=== PATIENT | female | born 1940 | race Caucasian/White ===

== ENCOUNTER 2018-02-21 10:49 | Inpatient (IN) | payer MEDICARE, BC ==
[2018-02-21] MEDS ORDERED: cefTRIAXone 1 GM in Sodium Chloride 0.9% 50 ML IV ONE (12:18)
--- NOTE | 2018-02-21 12:28 | EDM.PDOC ---
ED HPI GENERAL MEDICAL PROBLEM - General Chief Complaint: General Stated Complaint: MEDICAL [facility]IA [facility] Time Seen by Provider: 02/21/18 10:55 Source of Information: Reports: Patient, Family, Other (pt is very weak and is mildly confused. ) History Limitations: Reports: No Limitations - History of Present Illness INITIAL COMMENTS - FREE TEXT/NARRATIVE: pt was discharged from the custodial at [facility], She has been very weak and recently weaker. She fell this AM trying to get to a chair. She landed over the table. She is cared for by her and he is definitely overwhelmed. He feels he needs help or she needs to be in a custodial. Her weakness has been progressive. She fell today and can not identify any definite area of pain except she has chronic back pain. Onset: Today, Other (pt fell this am. ) Duration: Hour(s): Location: Reports: Back, Other (pt is pale and is very weak, ) Associated Symptoms: Reports: Weakness generalized Pain Score (Numeric/FACES): 2 - Related Data Allergies Allergy/AdvReac Type Severity Reaction Status Date / Time Penicillins Allergy Hives Verified 02/15/16 03:53 statins Allergy Cannot Uncoded 02/21/18 11:08 Remember Home Meds: Home Meds Acetaminophen 500 mg PO Q6H PRN 11/26/17 [History] Albuterol [Proventil HFA] 1 - 2 puff INH Q4H PRN 11/26/17 [History] Aspirin [Adult Low Dose Aspirin EC] 81 mg PO DAILY 11/26/17 [History] Ca Carbonate/Vitamin D3/Vit K [Calcium + D Soft Chewable Tab] 1 tab PO BID 11/26 [History] Cyclobenzaprine [Flexeril] 5 mg PO BEDTIME PRN 11/26/17 [History] Meclizine [Antivert] 1 tab PO TID PRN 11/26/17 [History] Melatonin 3 mg PO BEDTIME 11/26/17 [History] Polyethylene Glycol 3350 [MiraLAX] 17 gm PO DAILY 11/26/17 [History] Sertraline [Zoloft] 75 mg PO ASDIRECTED 11/26/17 [History] amLODIPine [Norvasc] 2.5 mg PO DAILY 11/26/17 [History] Albuterol/Ipratropium [DuoNeb 3.0-0.5 MG/3 ML] 3 ml INH Q4H PRN 02/21/18 [ History] Betamethasone Valerate [Valisone 0.1% Lotion] 1 dose TOP BID 02/21/18 [History] Estrogens, Conjugated [Premarin Vaginal Crm] 1 applic VAG ASDIRECTED 02/21/18 [ History] Ferrous Sulfate 325 mg PO DAILY 02/21/18 [History] Furosemide [Lasix] 20 mg PO DAILY 02/21/18 [History] L.acidoph,Paracasei, B.lactis [Probiotic] 1 each PO DAILY 02/21/18 [History] oxyCODONE 2.5 mg PO BID 02/21/18 [History] Past Medical History HEENT History: Reports: Impaired Vision Cardiovascular History: Reports: Aneurysm, CAD, Heart Murmur, High Cholesterol, Hypertension, NE, PVD, Stents Respiratory History: Reports: COPD, Other (See Below) Other Respiratory History: pneumonia aprox 3 months ago Gastrointestinal History: Reports: Chronic Constipation, Pancreatitis Genitourinary History: Reports: Chronic Renal Insuffiency, Urinary Incontinence , Other (See Below) Other Genitourinary History: Stage 3 [employer] History: Reports: Musculoskeletal History: Reports: Back Pain, Chronic Other Musculoskeletal History: recent lumbar injectons Neurological History: Reports: CVA Psychiatric History: Reports: Anxiety Dermatologic History: Reports: Eczema - Infectious Disease History Infectious Disease History: Reports: Chicken Pox, Measles, Mumps - Past Surgical History HEENT Surgical History: Reports: Oral Surgery, Tonsillectomy Cardiovascular Surgical History: Reports: AAA Repair, Coronary Artery Stent Female Surgical History: Reports: None Neurological Surgical History: Reports: None Social & Family History - Family History Family Medical History: Noncontributory Oncologic: Reports: Breast - Tobacco Use Smoking Status *Q: Former Smoker Years of Tobacco use: 55 Packs/Tins Daily: 1 Used Tobacco, but Quit: Yes Month/Year Tobacco Last Used: 07/19/2015 Second Hand Smoke Exposure: No - Caffeine Use Caffeine Use: Reports: Coffee, Soda - Recreational Drug Use Recreational Drug Use: No ED ROS GENERAL - Review of Systems Review Of Systems: See Below Constitutional: Reports: Weakness, Fatigue, Other (pt is not strong enough to ambulate. ) HEENT: Reports: No Symptoms Respiratory: Reports: No Symptoms Cardiovascular: Reports: No Symptoms Endocrine: Reports: No Symptoms GI/Abdominal: Reports: Other (pt is dealing with some copnstipation issues. ) : Reports: Incontinence, Other (pt has not been using depends so there has been alot of bed changing. ) Musculoskeletal: Reports: No Symptoms Skin: Reports: No Symptoms ED EXAM, GENERAL - Physical Exam Exam: See Below Free Text/Narrative:: Pt arrived with low back pain. This does not appear to be severe. She has had progressive weakness. Her appetite has been very poor. She has been drinking Ensure. Exam Limited By: No Limitations General Appearance: Alert, Mild Distress, Other (pupils equal and reactive. ) Ears: Normal TMs Nose: Normal Inspection Throat/Mouth: Normal Inspection Head: Atraumatic Neck: Normal Inspection Respiratory/Chest: No Respiratory Distress Cardiovascular: Regular Rate, Rhythm GI/Abdominal: Soft, Non-Tender (Female) Exam: Other (Pt smells of urine and she is incontinent. ) Rectal (Female) Exam: Other (Pt has no masses but there is alot of hard stool in the rectum. ) Back Exam: Other (pt has chronic low back pain. ) Extremities: Normal Inspection Neurological: Alert, Oriented, Other (pt is having some memory problems. ) Psychiatric: Flat Affect Course - Vital Signs Last Recorded V/S: Last Vital Signs Temp 36.7 C 02/21/18 10:53 Pulse 83 02/21/18 10:53 Resp 16 02/21/18 10:53 BP 132/78 02/21/18 10:53 Pulse Ox 95 02/21/18 10:53 - Orders/Labs/Meds Orders: Active Orders 24 hr Category Date Time Status Chest 1V Frontal [CR] Stat Exams 02/21/18 11:24 Taken Lumbar Spine Min 4V [CR] Stat Exams 02/21/18 11:25 Ordered Thoracic Spine Min 4V [CR] Stat Exams 02/21/18 11:25 Ordered CULTURE URINE [RM] Stat Lab 02/21/18 12:20 Received RED BLOOD CELLS LP [BBK] Stat Lab 02/21/18 11:58 Ordered TSH ULTRASENSITIVE [CHEM] Stat Lab 02/21/18 12:51 Ordered TYPE AND SCREEN [BBK] Stat Lab 02/21/18 11:58 Ordered Sodium Chloride 0.9% [Normal Saline] 1,000 ml Med 02/21/18 12:30 Active IV ASDIRECTED Medication Orders Sodium Chloride (Normal Saline) 1,000 mls @ 400 mls/hr IV ASDIRECTED GLORY Last Admin: 02/21/18 12:53 Dose: 400 mls/hr Labs: Laboratory Tests 02/21/18 02/21/18 02/21/18 Range/Units 11:29 11:29 11:39 WBC 11.9 H (4.5-11.0) K/uL RBC 3.20 L (3.30-5.50) M/uL Hgb 7.9 L (12.0-15.0) g/dL Hct 27.8 L (36.0-48.0) % MCV 87 (80-98) fL MCH 25 L (27-31) pg MCHC 28 L (32-36) % Plt Count 348 (150-400) K/uL Neut % (Auto) 80 H (36-66) % Lymph % (Auto) 12 L (24-44) % Long % (Auto) 7 H (2-6) % Eos % (Auto) 0 L (2-4) % Baso % (Auto) 0 (0-1) % Sodium 142 (140-148) mmol/L Potassium 3.4 L (3.6-5.2) mmol/L Chloride 104 (100-108) mmol/L Carbon Dioxide 29 (21-32) mmol/L Anion Gap 12.4 (5.0-14.0) mmol/L BUN 38 H (7-18) mg/dL Creatinine 0.9 (0.6-1.0) mg/dL Est Cr Clr Drug Dosing 41.32 mL/min Estimated GFR (MDRD) > 60 (>60) Glucose 124 H (74-106) mg/dL Calcium 9.1 (8.5-10.1) mg/dL Iron 12 L (50-170) ug/dL TIBC 229 L (250-450) ug/dl % Saturation 5 L (20-55) % Total Bilirubin 0.3 D (0.2-1.0) mg/dL AST 16 (15-37) U/L ALT 21 (12-78) U/L Alkaline Phosphatase 77 (46-116) U/L Total Protein 6.1 L (6.4-8.2) g/dL Albumin 2.6 L (3.4-5.0) g/dL Globulin 3.5 (2.3-3.5) g/dL Albumin/Globulin Ratio 0.7 L (1.2-2.2) Urine Color Urine Appearance Urine pH (4.5-8.0) Ur Specific [place] (1.008-1.030) Urine Protein (NEGATIVE) mg/dL Urine Glucose (UA) (NEGATIVE) mg/dL Urine Ketones (NEGATIVE) mg/dL Urine Occult Blood (NEGATIVE) Urine Nitrite (NEGATIVE) Urine Bilirubin (NEGATIVE) Urine Urobilinogen (NORMAL) mg/dL Ur Leukocyte Esterase (NEGATIVE) Urine RBC (0-5) Urine WBC (0-5) Ur Epithelial Cells Amorphous Sediment Urine Bacteria Urine Mucus 02/21/18 Range/Units 11:46 WBC (4.5-11.0) K/uL RBC (3.30-5.50) M/uL Hgb (12.0-15.0) g/dL Hct (36.0-48.0) % MCV (80-98) fL MCH (27-31) pg MCHC (32-36) % Plt Count (150-400) K/uL Neut % (Auto) (36-66) % Lymph % (Auto) (24-44) % Long % (Auto) (2-6) % Eos % (Auto) (2-4) % Baso % (Auto) (0-1) % Sodium (140-148) mmol/L Potassium (3.6-5.2) mmol/L Chloride (100-108) mmol/L Carbon Dioxide (21-32) mmol/L Anion Gap (5.0-14.0) mmol/L BUN (7-18) mg/dL Creatinine (0.6-1.0) mg/dL Est Cr Clr Drug Dosing mL/min Estimated GFR (MDRD) (>60) Glucose (74-106) mg/dL Calcium (8.5-10.1) mg/dL Iron (50-170) ug/dL TIBC (250-450) ug/dl % Saturation (20-55) % Total Bilirubin (0.2-1.0) mg/dL AST (15-37) U/L ALT (12-78) U/L Alkaline Phosphatase (46-116) U/L Total Protein (6.4-8.2) g/dL Albumin (3.4-5.0) g/dL Globulin (2.3-3.5) g/dL Albumin/Globulin Ratio (1.2-2.2) Urine Color Yellow Urine Appearance Slightly cloudy Urine pH 5.0 (4.5-8.0) Ur Specific [place] 1.015 (1.008-1.030) Urine Protein Trace (NEGATIVE) mg/dL Urine Glucose (UA) Normal (NEGATIVE) mg/dL Urine Ketones Negative (NEGATIVE) mg/dL Urine Occult Blood Small (NEGATIVE) Urine Nitrite Negative (NEGATIVE) Urine Bilirubin Negative (NEGATIVE) Urine Urobilinogen Normal (NORMAL) mg/dL Ur Leukocyte Esterase Small (NEGATIVE) Urine RBC 5-10 H (0-5) Urine WBC 10-20 H (0-5) Ur Epithelial Cells Moderate Amorphous Sediment Not seen Urine Bacteria Many Urine Mucus Not seen Meds: Medications Generic Name Dose Route Start Last Admin Trade Name Freq PRN Reason Stop Dose Admin Sodium Chloride 1,000 mls @ 400 mls/hr 02/21/18 12:30 02/21/18 12:53 Normal Saline IV 400 mls/hr ASDIRECTED GLORY Administration Discontinued Medications Generic Name Dose Route Start Last Admin Trade Name Freq PRN Reason Stop Dose Admin Ceftriaxone Sodium 1 gm/ 50 mls @ 100 mls/hr 02/21/18 12:18 02/21/18 12:55 Sodium Chloride IV 02/21/18 12:47 100 mls/hr ONETIME ONE Administration - Re-Assessments/Exams Free Text/Narrative Re-Assessment/Exam: 02/21/18 12:34 pt has a normal creatnine. Her hg is 7.9 and was 13 in Nov. She has a UTI and she will be given rocephen. --1 GM. She does not have a fever. 02/21/18 12:41 pt has a low fe and low fe binding cap. 02/21/18 13:05 pt had xrays of her t and L spine. Her chest xray has alot of chronic changes. Departure - Departure Time of Disposition: 12:43 Disposition: Admitted As Inpatient 65 Condition: Fair Clinical Impression: Anemia, Iron deficiency, Dehydration UTI (urinary tract infection) Qualifiers: Urinary tract infection type: acute cystitis Hematuria presence: without hematuria Qualified Code(s): N30.00 - Acute cystitis without hematuria - Discharge Information Referrals: PCP,None [Primary Care Provider] - Forms: ED Department Discharge Care Plan Goals: admit to Dr lunsford. - My Orders Last 24 Hours: My Active Orders 02/21/18 11:24 Chest 1V Frontal [CR] Stat 02/21/18 11:25 Lumbar Spine Min 4V [CR] Stat Thoracic Spine Min 4V [CR] Stat 02/21/18 11:58 RED BLOOD CELLS LP [BBK] Stat TYPE AND SCREEN [BBK] Stat 02/21/18 12:20 CULTURE URINE [RM] Stat 02/21/18 12:30 Sodium Chloride 0.9% [Normal Saline] 1,000 ml IV ASDIRECTED 02/21/18 12:51 TSH ULTRASENSITIVE [CHEM] Stat - Assessment/Plan Last 24 Hours: My Active Orders 02/21/18 11:24 Chest 1V Frontal [CR] Stat 02/21/18 11:25 Lumbar Spine Min 4V [CR] Stat Thoracic Spine Min 4V [CR] Stat 02/21/18 11:58 RED BLOOD CELLS LP [BBK] Stat TYPE AND SCREEN [BBK] Stat 02/21/18 12:20 CULTURE URINE [RM] Stat 02/21/18 12:30 Sodium Chloride 0.9% [Normal Saline] 1,000 ml IV ASDIRECTED 02/21/18 12:51 TSH ULTRASENSITIVE [CHEM] Stat
[2018-02-21] MEDS ORDERED: Sodium Chloride 0.9% 1,000 ML IV SCH ×2 (12:30→14:35)
[2018-02-21] MEDS ORDERED: Acetaminophen 325 MG Tab PO PRN (14:35)
[2018-02-21] MEDS ORDERED: Ondansetron 4 MG/2 ML SDV IV PRN (14:35)
[2018-02-21] MEDS ORDERED: Albuterol 0.083% 2.5 MG/3 ML Neb Soln NEB PRN (14:35)
[2018-02-21] MEDS ORDERED: Magnesium Hydroxide 400 MG/5 ML Susp 30 ML Cup PO PRN (14:35)
[2018-02-21] MEDS ORDERED: Ondansetron 4 MG Tab.DIS PO PRN (14:35)
--- NOTE | 2018-02-21 14:40 | PCM.HP ---
H&P History of Present Illness - General Date of Service: 02/21/18 Admit Problem/Dx: Admission Diagnosis/Problem Admission Diagnosis/Problem Acute cystitis Source of Information: Patient, Family, Provider History Limitations: Reports: No Limitations - History of Present Illness Initial Comments - Free Text/Narative: Gi presents to the emergency room with her with a chief complaint of weakness and had a fall this morning. The patient has mild cognitive deficits so much of the history is gathered from her Norm. She had been in the senior living for about a month and has been home for just over a month. She has had a slow decline in her strength since that time. Even walking about 20 feet from the bed to the recliner is increasingly difficult. This morning her found her laying on the floor between the bed and the recliner after she had apparently got up at some point to go to the chair. She is not currently complaining of any aches or pains. No complaints of shoulder, elbow or chest pain. No complaints of abdominal pain. Her reports that she has not had much of an appetite and has lost more than 50 pounds in the past 6- 12 months. Patient reports odynophagia when trying to eat food. Liquids typically go down okay. No sensation of the food getting stuck. She has mild intermittent nausea. She reports difficulty with hard bowel movements but has not been using her stool softeners or miralax. She has not had any blood in her stool and has not had black tarry stools. She does not have any change in urinary symptoms but has chronic dysuria, frequency and incontinence. She is not sure if she's had any fevers recently but does occasionally feel warm. She does not feel any more short of breath than baseline. She uses oxygen 24 hours a day. Her is feeling overwhelmed with her current level of weakness and does not think he can safely care for her at home any longer. Workup in the emergency room revealed evidence for anemia with a hemoglobin of 7.9 and a very low iron level. She has a mild leukocytosis and evidence for urinary tract infection. She is extremely weak and not safe for outpatient management. She will be admitted for further workup of the anemia as well as strengthening, urinary tract infection treatment and possibly senior living placement. generalized Pain Score (Numeric/FACES): 2 - Related Data Allergies/Adverse Reactions: Allergies Allergy/AdvReac Type Severity Reaction Status Date / Time Penicillins Allergy Hives Verified 02/15/16 03:53 statins Allergy Cannot Uncoded 02/21/18 11:08 Remember Home Medications: Home Meds Acetaminophen 500 mg PO Q6H PRN 11/26/17 [History] Albuterol [Proventil HFA] 1 - 2 puff INH Q4H PRN 11/26/17 [History] Aspirin [Adult Low Dose Aspirin EC] 81 mg PO DAILY 11/26/17 [History] Ca Carbonate/Vitamin D3/Vit K [Calcium + D Soft Chewable Tab] 1 tab PO BID 11/26 [History] Cyclobenzaprine [Flexeril] 5 mg PO BEDTIME PRN 11/26/17 [History] Meclizine [Antivert] 1 tab PO TID PRN 11/26/17 [History] Melatonin 3 mg PO BEDTIME 11/26/17 [History] Polyethylene Glycol 3350 [MiraLAX] 17 gm PO DAILY 11/26/17 [History] Sertraline [Zoloft] 75 mg PO ASDIRECTED 11/26/17 [History] amLODIPine [Norvasc] 2.5 mg PO DAILY 11/26/17 [History] Albuterol/Ipratropium [DuoNeb 3.0-0.5 MG/3 ML] 3 ml INH Q4H PRN 02/21/18 [ History] Betamethasone Valerate [Valisone 0.1% Lotion] 1 dose TOP BID 02/21/18 [History] Estrogens, Conjugated [Premarin Vaginal Crm] 1 applic VAG ASDIRECTED 02/21/18 [ History] Ferrous Sulfate 325 mg PO DAILY 02/21/18 [History] Furosemide [Lasix] 20 mg PO DAILY 02/21/18 [History] L.acidoph,Paracasei, B.lactis [Probiotic] 1 each PO DAILY 02/21/18 [History] oxyCODONE 2.5 mg PO BID 02/21/18 [History] Past Medical History HEENT History: Reports: Impaired Vision Cardiovascular History: Reports: Aneurysm, CAD, Heart Murmur, High Cholesterol, Hypertension, [place], PVD, Stents Respiratory History: Reports: COPD, Other (See Below) Other Respiratory History: pneumonia aprox 3 months ago Gastrointestinal History: Reports: Chronic Constipation, Pancreatitis Genitourinary History: Reports: Chronic Renal Insuffiency, Urinary Incontinence , Other (See Below) Other Genitourinary History: Stage 3 CRI [employer] History: Reports: Musculoskeletal History: Reports: Back Pain, Chronic Other Musculoskeletal History: recent lumbar injectons Neurological History: Reports: CVA Psychiatric History: Reports: Anxiety Dermatologic History: Reports: Eczema - Infectious Disease History Infectious Disease History: Reports: Chicken Pox, Measles, Mumps - Past Surgical History HEENT Surgical History: Reports: Oral Surgery, Tonsillectomy Cardiovascular Surgical History: Reports: AAA Repair, Coronary Artery Stent Female Surgical History: Reports: None Neurological Surgical History: Reports: None Social & Family History - Family History Family Medical History: Noncontributory Oncologic: Reports: Breast - Tobacco Use Smoking Status *Q: Former Smoker Years of Tobacco use: 55 Packs/Tins Daily: 1 Used Tobacco, but Quit: Yes Month/Year Tobacco Last Used: 07/19/2015 Second Hand Smoke Exposure: No - Caffeine Use Caffeine Use: Reports: Coffee, Soda - Alcohol Use Alcohol Use History: No - Recreational Drug Use Recreational Drug Use: No H&P Review of Systems - Review of Systems: Review Of Systems: See Below Free Text/Narrative: A complete 12 point review of systems was obtained. Pertinent positives and negatives are noted in the history of present illness. All other systems were reviewed and were negative except as noted. Exam - Exam Exam: See Below - Vital Signs Vital Signs: Last Vital Signs Temp 36.7 C 02/21/18 10:53 Pulse 83 02/21/18 10:53 Resp 16 02/21/18 10:53 BP 132/78 02/21/18 10:53 Pulse Ox 95 02/21/18 10:53 Weight: 50.802 kg - Exam Quality Assessment: Supplemental Oxygen General: Alert, Cooperative. No: Oriented, Mild Distress HEENT: Conjunctiva Clear. No: Mucosa Moist & [place] (dry), Scleral Icterus Neck: Supple, Trachea Midline. No: Lymphadenopathy, Thyromegaly Lungs: Clear to Auscultation, Normal Respiratory Effort Cardiovascular: Regular Rate, Regular Rhythm. No: Systolic Murmur GI/Abdominal Exam: Normal Bowel Sounds, Soft, Non-Tender, Tender (mild mid abdominal pain ) Back Exam: No: Normal Inspection (severe scoliosis ), Full Range of Motion Extremities: No Pedal Edema. No: Increased Warmth Peripheral Pulses: 2+: Dorsalis Pedis (L), Dorsalis Pedis (R) Skin: Warm, Dry Neuro Extensive - Mental Status: Alert, Oriented x3, Nl Response to Commands Neuro Extensive - Motor, Sensory, Reflexes: CN II-XII Intact. No: Dysarthria, Abnormal Motor, Tremor Psychiatric: Alert, Normal Affect - Patient Data Lab Results Last 24 hrs: Laboratory Results - last 24 hr 02/21/18 02/21/18 02/21/18 Range/Units 11:29 11:29 11:39 WBC 11.9 H (4.5-11.0) K/uL RBC 3.20 L (3.30-5.50) M/uL Hgb 7.9 L (12.0-15.0) g/dL Hct 27.8 L (36.0-48.0) % MCV 87 (80-98) fL MCH 25 L (27-31) pg MCHC 28 L (32-36) % Plt Count 348 (150-400) K/uL Neut % (Auto) 80 H (36-66) % Lymph % (Auto) 12 L (24-44) % [place] % (Auto) 7 H (2-6) % Eos % (Auto) 0 L (2-4) % Baso % (Auto) 0 (0-1) % Sodium 142 (140-148) mmol/L Potassium 3.4 L (3.6-5.2) mmol/L Chloride 104 (100-108) mmol/L Carbon Dioxide 29 (21-32) mmol/L Anion Gap 12.4 (5.0-14.0) mmol/L BUN 38 H (7-18) mg/dL Creatinine 0.9 (0.6-1.0) mg/dL Est Cr Clr Drug Dosing 41.32 mL/min Estimated GFR (MDRD) > 60 (>60) Glucose 124 H (74-106) mg/dL Calcium 9.1 (8.5-10.1) mg/dL Iron 12 L (50-170) ug/dL TIBC 229 L (250-450) ug/dl % Saturation 5 L (20-55) % Total Bilirubin 0.3 D (0.2-1.0) mg/dL AST 16 (15-37) U/L ALT 21 (12-78) U/L Alkaline Phosphatase 77 (46-116) U/L Total Protein 6.1 L (6.4-8.2) g/dL Albumin 2.6 L (3.4-5.0) g/dL Globulin 3.5 (2.3-3.5) g/dL Albumin/Globulin Ratio 0.7 L (1.2-2.2) TSH, Ultra Sensitive (0.358-3.740) uIU/mL Urine Color Urine Appearance Urine pH (4.5-8.0) Ur Specific [place] (1.008-1.030) Urine Protein (NEGATIVE) mg/dL Urine Glucose (UA) (NEGATIVE) mg/dL Urine Ketones (NEGATIVE) mg/dL Urine Occult Blood (NEGATIVE) Urine Nitrite (NEGATIVE) Urine Bilirubin (NEGATIVE) Urine Urobilinogen (NORMAL) mg/dL Ur Leukocyte Esterase (NEGATIVE) Urine RBC (0-5) Urine WBC (0-5) Ur Epithelial Cells Amorphous Sediment Urine Bacteria Urine Mucus Blood Type Gel Antibody Screen Crossmatch 02/21/18 02/21/18 02/21/18 Range/Units 11:46 11:58 12:51 WBC (4.5-11.0) K/uL RBC (3.30-5.50) M/uL Hgb (12.0-15.0) g/dL Hct (36.0-48.0) % MCV (80-98) fL MCH (27-31) pg MCHC (32-36) % Plt Count (150-400) K/uL Neut % (Auto) (36-66) % Lymph % (Auto) (24-44) % [place] % (Auto) (2-6) % Eos % (Auto) (2-4) % Baso % (Auto) (0-1) % Sodium (140-148) mmol/L Potassium (3.6-5.2) mmol/L Chloride (100-108) mmol/L Carbon Dioxide (21-32) mmol/L Anion Gap (5.0-14.0) mmol/L BUN (7-18) mg/dL Creatinine (0.6-1.0) mg/dL Est Cr Clr Drug Dosing mL/min Estimated GFR (MDRD) (>60) Glucose (74-106) mg/dL Calcium (8.5-10.1) mg/dL Iron (50-170) ug/dL TIBC (250-450) ug/dl % Saturation (20-55) % Total Bilirubin (0.2-1.0) mg/dL AST (15-37) U/L ALT (12-78) U/L Alkaline Phosphatase (46-116) U/L Total Protein (6.4-8.2) g/dL Albumin (3.4-5.0) g/dL Globulin (2.3-3.5) g/dL Albumin/Globulin Ratio (1.2-2.2) TSH, Ultra Sensitive 0.423 (0.358-3.740) uIU/mL Urine Color Yellow Urine Appearance Slightly cloudy Urine pH 5.0 (4.5-8.0) Ur Specific [place] 1.015 (1.008-1.030) Urine Protein Trace (NEGATIVE) mg/dL Urine Glucose (UA) Normal (NEGATIVE) mg/dL Urine Ketones Negative (NEGATIVE) mg/dL Urine Occult Blood Small (NEGATIVE) Urine Nitrite Negative (NEGATIVE) Urine Bilirubin Negative (NEGATIVE) Urine Urobilinogen Normal (NORMAL) mg/dL Ur Leukocyte Esterase Small (NEGATIVE) Urine RBC 5-10 H (0-5) Urine WBC 10-20 H (0-5) Ur Epithelial Cells Moderate Amorphous Sediment Not seen Urine Bacteria Many Urine Mucus Not seen Blood Type A POSITIVE Gel Antibody Screen Positive A* Crossmatch See Detail Result Diagrams: 02/21/18 11:29 02/21/18 11:29 Darrell Results Last 24 hrs: Microbiology 02/21/18 11:46 Stool Occult Blood (DARRELL) - Final Stool / Feces Imaging Impressions Last 24 hrs: CXR - images personally reviewed - scoliosis, hyperinflation. Heart size is normal. No mass, infiltrate or effusion. Thoracic spine XR - multiple old compression fractures. No acute fractures. Lumbar spine XR - no acute fractures. *Q Meaningful Use (ADM) - VTE *Q VTE Pharmacological Contraindications *Q: Active Hemorrhage - VTE Risk Assess *Q Each Risk Factor Represents 1 Point: Abnormal Pulmonary Function (COPD) Total Score 1 Point Risk Factors: 1 Each Risk Factor Represents 2 Points: None Total Score 2 Point Risk Factors: 0 Each Risk Factor Represents 3 Points: Age 75 Years or Greater Total Score 3 Point Risk Factors: 3 Each Risk Factor Represents 5 Points: None Total Score 5 Point Risk Factors: 0 Venous Thromboembolism Risk Factor Score *Q: 4 - Problem List (1) Acute cystitis SNOMED Code(s): 80008546 ICD Code: N30.00 - ACUTE CYSTITIS WITHOUT HEMATURIA Status: Acute Current Visit: Yes Qualifiers: Hematuria presence: without hematuria Qualified Code(s): N30.00 - Acute cystitis without hematuria (2) Iron deficiency anemia due to chronic blood loss SNOMED Code(s): 088894198 ICD Code: D50.0 - IRON DEFICIENCY ANEMIA SECONDARY TO BLOOD LOSS (CHRONIC) Status: Acute Current Visit: Yes (3) Fall in elderly patient SNOMED Code(s): 754343572 ICD Code: R29.6 - REPEATED FALLS Status: Acute Current Visit: No (4) CKD (chronic kidney disease), stage III SNOMED Code(s): 513839427 ICD Code: N18.3 - CHRONIC KIDNEY DISEASE, STAGE 3 (MODERATE) Status: Chronic Current Visit: No (5) CAD (coronary artery disease) SNOMED Code(s): 39755155 ICD Code: I25.10 - ATHSCL HEART DISEASE OF [place] CORONARY ARTERY W/O ANG PCTRS Status: Chronic Current Visit: No Qualifiers: Coronary Disease-Associated Artery/Lesion type: [place] artery [place] vs. transplanted heart: [place] heart Associated angina: without angina Qualified Code(s): I25.10 - Atherosclerotic heart disease of [place] coronary artery without angina pectoris (6) Mild cognitive impairment with memory loss SNOMED Code(s): 610875094, 161865745 ICD Code: G31.84 - MILD COGNITIVE IMPAIRMENT, SO STATED Status: Chronic Current Visit: No Problem List Initiated/Reviewed/Updated: Yes Orders Last 24hrs: Active Orders 24 hr Category Date Time Status Patient Status Manage Transfer [TRANSFER] Routine ADT 02/21/18 14:21 Active Chest 1V Frontal [CR] Stat Exams 02/21/18 11:24 Taken Lumbar Spine Min 4V [CR] Stat Exams 02/21/18 11:25 Taken Thoracic Spine Min 4V [CR] Stat Exams 02/21/18 11:25 Taken ANTIBODY IDENTIFICATION [BBK] Stat Lab 02/21/18 11:58 Results CULTURE URINE [RM] Stat Lab 02/21/18 12:20 Received PATIENT RETYPE [BBK] Stat Lab 02/21/18 11:58 Results RED BLOOD CELLS LP [BBK] Stat Lab 02/21/18 11:58 Results TYPE AND SCREEN [BBK] Stat Lab 02/21/18 11:58 Results Sodium Chloride 0.9% [Normal Saline] 1,000 ml Med 02/21/18 12:30 Active IV ASDIRECTED Resuscitation Status Routine Resus Stat 02/21/18 14:25 Ordered Medication Orders Sodium Chloride (Normal Saline) 1,000 mls @ 400 mls/hr IV ASDIRECTED GLORY Last Admin: 02/21/18 12:53 Dose: 400 mls/hr Assessment/Plan Comment:: ASSESSMENT AND PLAN - Acute cystitis - call urinary tract infection could explain increase in weakness and recent falls. She is not currently febrile but does have mild leukocytosis. No symptoms of infection. No recent antibiotic treatment. -Ceftriaxone -Follow-up urine culture -Physical therapy for strengthening when available on Friday Iron deficiency anemia, likely secondary to chronic blood loss - No report of melena or hematochezia. She did have a guaiac positive stool. With her upper GI symptoms I'm concerned about gastritis, gastric ulcer or possibly esophagitis. Hemoglobin 3 months ago was in the normal range. The decreased hemoglobin is likely contributing to her falls and weakness. Patient has had a 50 pound weight loss in about 6 months and I'm not sure if this is because of poor intake or if she has an underlying malignancy. -EGD in the morning -Transfuse if less than 7 or additional bleeding -Iron infusion tomorrow -PPI -Soft diet Oxygen-dependent COPD - Poor functional status, only able to walk about 10-15 feet at this time. No evidence for pulmonary infection. -Scheduled and as needed nebulizers Mild cognitive deficits - A early dementia, could be vascular versus Alzheimer' s. I don't believe she is able to make her own decisions at this time. Maintenance issues - - DVT prophylaxis - mechanical with high risk of bleeding - GI prophylaxis - PPI - Nutrition - soft diet tonight, nothing by mouth after midnight - Gatica catheter - not indicated CODE STATUS - DNR/DNI Admission justification - This patient will be admitted for inpatient services and is medically appropriate meeting medical necessity for inpatient admission as outlined in my documentation. I reasonably expect the patient will require inpatient services that span a period time over 2 midnights. I reasonably expect this patient to be discharged or transferred within 96 hours after admission to the [facility]. Disposition - I would anticipate discharge to the senior living after the hospital stay Primary care physician - JACKELYN Zee M.D.
[2018-02-21] MEDS: Albuterol/Ipratropium 3.0-0.5 MG/3 ML Neb Soln INH SCH ×2 (14:56→21:07)
[2018-02-21] MEDS ORDERED: Albuterol/Ipratropium 3.0-0.5 MG/3 ML Neb Soln INH SCH (16:00)
[2018-02-21] MEDS: Pantoprazole 40 MG Tab.CR PO SCH (16:09)
[2018-02-21] MEDS: Melatonin 3 MG Tab PO SCH (21:02)
[2018-02-21] MEDS: oxyCODONE 5 MG Tab PO SCH (21:06)
[2018-02-22] MEDS: Albuterol/Ipratropium 3.0-0.5 MG/3 ML Neb Soln INH SCH ×4 (08:15→21:40)
[2018-02-22] MEDS ORDERED: Sertraline 50 MG Tab PO SCH (09:00)
[2018-02-22] MEDS ORDERED: Non-Formulary Medication 1 Each (Amlodipine [Norvasc] 2.5 MG) PO SCH (09:00)
[2018-02-22] MEDS ORDERED: Potassium Chloride 20 MEQ Tab.ER PO ONE (09:15)
[2018-02-22] MEDS ORDERED: Propofol 200 MG/20 ML SDV ONE (09:30)
[2018-02-22] MEDS ORDERED: Potassium Chloride 10% 20 MEQ/15 ML Soln 15 ML UD Cup PO ONE (11:30)
[2018-02-22] MEDS: Pantoprazole 40 MG Tab.CR PO SCH ×2 (11:32→17:21)
[2018-02-22] MEDS: amLODIPine 5 MG Tab PO SCH (11:32)
[2018-02-22] MEDS: Aspirin 81 MG Tab.EC PO SCH (11:32)
[2018-02-22] MEDS: Sertraline 50 MG, Sertraline 25 MG PO SCH ×2 (11:33)
[2018-02-22] MEDS: Polyethylene Glycol 3350 Powder 17 GM Packet PO SCH (11:33)
[2018-02-22] MEDS: oxyCODONE 5 MG Tab PO SCH ×2 (11:38→21:38)
[2018-02-22] MEDS ORDERED: cefTRIAXone 1 GM in Sodium Chloride 0.9% 50 ML IV SCH (13:00)
[2018-02-22] MEDS: cefTRIAXone 1 GM in Sodium Chloride 0.9% 50 ML IV SCH (13:12)
--- NOTE | 2018-02-22 14:39 | PCM.PN ---
- General Info Date of Service: 02/22/18 Subjective Update: Gi was admitted yesterday for weakness, anemia and a urinary tract infection. There were no acute events overnight. This morning her urine culture is growing out a gram-positive cocci with identification pending. She has not had any fevers. Hemoglobin is down slightly to 7.6 and a blood transfusion is planned when blood is available (she had an antibody in her blood). EGD was performed by Dr. Feldman this morning and a fairly large circumferential mass was noted at the EG junction. This is very concerning for cancer and obstructs most of the esophageal opening into the stomach. She continues to endorse discomfort when trying to swallow food. Functional Status: Reports: Pain Controlled, Tolerating Diet - Review of Systems General: Reports: Weakness HEENT: Reports: Other (odynophagia) - Patient Data Vitals - Most Recent: Last Vital Signs Temp 36.2 C 02/22/18 12:43 Pulse 91 02/22/18 12:43 Resp 16 02/22/18 12:43 BP 146/78 H 02/22/18 12:43 Pulse Ox 94 L 02/22/18 12:43 Weight - Most Recent: 50.802 kg I&O - Last 24 Hours: Intake & Output 02/21/18 02/22/18 02/22/18 22:59 06:59 14:59 Intake Total 600 1254 Balance 600 1254 Lab Results Last 24 Hours: Laboratory Results - last 24 hr 02/21/18 02/22/18 02/22/18 Range/Units 11:58 04:41 04:41 WBC 11.6 H (4.5-11.0) K/uL RBC 3.02 L (3.30-5.50) M/uL Hgb 7.6 L (12.0-15.0) g/dL Hct 26.7 L (36.0-48.0) % MCV 88 (80-98) fL MCH 25 L (27-31) pg MCHC 29 L (32-36) % Plt Count 325 (150-400) K/uL Sodium 143 (140-148) mmol/L Potassium 3.4 L (3.6-5.2) mmol/L Chloride 108 (100-108) mmol/L Carbon Dioxide 25 (21-32) mmol/L Anion Gap 13.4 (5.0-14.0) mmol/L BUN 29 H (7-18) mg/dL Creatinine 0.8 (0.6-1.0) mg/dL Est Cr Clr Drug Dosing 46.48 mL/min Estimated GFR (MDRD) > 60 (>60) Glucose 118 H (74-106) mg/dL Calcium 8.8 (8.5-10.1) mg/dL Ferritin 50 (8-388) ng/ml Blood Type A POSITIVE Gel Antibody Screen Positive A* Crossmatch See Detail Darrell Results Last 24 Hours: Microbiology 02/21/18 12:20 Urine Culture - Preliminary Urine, Bladder 02/21/18 11:46 Stool Occult Blood (DARRELL) - Final Stool / Feces Med Orders - Current: Current Medications Acetaminophen (Tylenol) 650 mg PO Q4H PRN PRN Reason: Pain (Mild 1-3)/fever Albuterol (Proventil Neb Soln) 2.5 mg NEB Q4H PRN PRN Reason: Shortness Of Breath/wheezing Albuterol/Ipratropium (Duoneb 3.0-0.5 Mg/3 Ml) 3 ml INH QIDRT [facility] Last Admin: 02/22/18 11:07 Dose: 3 ml Amlodipine Besylate (Norvasc) 2.5 mg PO DAILY [facility] Last Admin: 02/22/18 11:32 Dose: 2.5 mg Aspirin (Halfprin) 81 mg PO DAILY [facility] Last Admin: 02/22/18 11:32 Dose: 81 mg Ceftriaxone Sodium 1 gm/ (Sodium Chloride) 50 mls @ 100 mls/hr IV Q24H [facility] Last Admin: 02/22/18 13:12 Dose: 100 mls/hr Magnesium Hydroxide (Milk Of Magnesia) 30 ml PO Q12H PRN PRN Reason: Constipation Melatonin (Melatonin) 6 mg PO BEDTIME [facility] Last Admin: 02/21/18 21:02 Dose: 6 mg Ondansetron HCl (Zofran Odt) 4 mg PO Q6H PRN PRN Reason: Nausea able to take PO Ondansetron HCl (Zofran) 4 mg IV Q6H PRN PRN Reason: Nausea/Vomiting Oxycodone HCl (Oxycodone) 2.5 mg PO BID [facility] Last Admin: 02/22/18 11:38 Dose: 2.5 mg Pantoprazole Sodium (Protonix) 40 mg PO BIDAC [facility] Last Admin: 02/22/18 11:32 Dose: 40 mg Polyethylene Glycol (Miralax) 17 gm PO DAILY [facility] Last Admin: 02/22/18 11:33 Dose: 17 gm Sertraline HCl 50 mg/ (Sertraline HCl 25 mg) 75 mg PO DAILY [facility] Last Admin: 02/22/18 11:33 Dose: 75 mg Discontinued Medications Sodium Chloride (Normal Saline) 1,000 mls @ 400 mls/hr IV ASDIRECTED [facility] Last Admin: 02/21/18 12:53 Dose: 400 mls/hr Ceftriaxone Sodium 1 gm/ (Sodium Chloride) 50 mls @ 100 mls/hr IV ONETIME ONE Stop: 02/21/18 12:47 Last Admin: 02/21/18 12:55 Dose: 100 mls/hr Sodium Chloride (Normal Saline) 1,000 mls @ 100 mls/hr IV ASDIRECTED [facility] Last Admin: 02/22/18 02:02 Dose: 100 mls/hr Potassium Chloride (Klor-Con M20) 40 meq PO ONETIME ONE Stop: 02/22/18 09:16 Last Admin: 02/22/18 11:41 Dose: Not Given Potassium Chloride (Potassium Chloride Solution) 40 meq PO ONETIME ONE Stop: 02/22/18 11:31 Last Admin: 02/22/18 11:33 Dose: 40 meq Propofol (Diprivan 20 Ml) Confirm Administered Dose 200 mg .ROUTE .STK-MED ONE Stop: 02/22/18 09:31 - Exam Quality Assessment: Supplemental Oxygen General: Alert, Cooperative, No Acute Distress. No: Oriented Lungs: Normal Respiratory Effort Cardiovascular: Regular Rate, Regular Rhythm GI/Abdominal Exam: Soft, No Distention Extremities: No Pedal Edema Skin: Warm, Dry Psy/Mental Status: Alert, Normal Affect - Problem List & Annotations (1) Acute cystitis SNOMED Code(s): 74299841 Code(s): N30.00 - ACUTE CYSTITIS WITHOUT HEMATURIA Status: Acute Current Visit: Yes Qualifiers: Hematuria presence: without hematuria Qualified Code(s): N30.00 - Acute cystitis without hematuria (2) Iron deficiency anemia due to chronic blood loss SNOMED Code(s): 585738692 Code(s): D50.0 - IRON DEFICIENCY ANEMIA SECONDARY TO BLOOD LOSS (CHRONIC) Status: Acute Current Visit: Yes (3) Fall in elderly patient SNOMED Code(s): 407416409 Code(s): R29.6 - REPEATED FALLS Status: Acute Current Visit: No (4) CKD (chronic kidney disease), stage III SNOMED Code(s): 956830140 Code(s): N18.3 - CHRONIC KIDNEY DISEASE, STAGE 3 (MODERATE) Status: Chronic Current Visit: No (5) CAD (coronary artery disease) SNOMED Code(s): 21672810 Code(s): I25.10 - ATHSCL HEART DISEASE OF [place] CORONARY ARTERY W/O ANG PCTRS Status: Chronic Current Visit: No Qualifiers: Coronary Disease-Associated Artery/Lesion type: [place] artery [place] vs. transplanted heart: [place] heart Associated angina: without angina Qualified Code(s): I25.10 - Atherosclerotic heart disease of [place] coronary artery without angina pectoris (6) Mild cognitive impairment with memory loss SNOMED Code(s): 870985231, 321990304 Code(s): G31.84 - MILD COGNITIVE IMPAIRMENT, SO STATED Status: Chronic Current Visit: No (7) Mass of esophagus determined by endoscopy SNOMED Code(s): 932217184, 105389062 Code(s): K22.8 - OTHER SPECIFIED DISEASES OF ESOPHAGUS Status: Acute Current Visit: Yes - Problem List Review Problem List Initiated/Reviewed/Updated: Yes - My Orders Last 24 Hours: My Active Orders 02/21/18 14:25 Resuscitation Status Routine 02/21/18 14:35 Patient Status [ADT] Routine Antiembolic Devices [RC] .Routine Intake and Output [RC] QSHIFT Notify Provider Consults [RC] ASDIRECTED Notify Provider Vital Signs [RC] ASDIRECTED Oxygen Therapy [RC] .PRN RT Aerosol Therapy [RC] ASDIRECTED VTE/DVT Education [RC] Per Unit Routine Vital Signs [RC] Q4H Consult to Physician [CONS] Routine Acetaminophen [Tylenol] 650 mg PO Q4H PRN Albuterol [Proventil Neb Soln] 2.5 mg NEB Q4H PRN Magnesium Hydroxide [Milk of Magnesia] 30 ml PO Q12H PRN Ondansetron [Zofran ODT] 4 mg PO Q6H PRN Ondansetron [Zofran] 4 mg IV Q6H PRN Sequential Compression Device [OM.PC] Per Unit Routine VTE Pharmacological Contraindications [AST] Per Unit Routine 02/21/18 15:00 Albuterol/Ipratropium [DuoNeb 3.0-0.5 MG/3 ML] 3 ml INH QIDRT 02/21/18 16:30 Pantoprazole [ProTONIX] 40 mg PO BIDAC 02/21/18 21:00 Melatonin 6 mg PO BEDTIME oxyCODONE 2.5 mg PO BID 02/22/18 09:00 Aspirin [Halfprin] 81 mg PO DAILY Polyethylene Glycol 3350 [MiraLAX] 17 gm PO DAILY Sertraline [Zoloft] 75 mg PO DAILY amLODIPine [Norvasc] 2.5 mg PO DAILY 02/22/18 10:46 Convert IV to Saline Lock [OM.PC] Routine 02/22/18 13:00 cefTRIAXone [Rocephin] 1 gm Sodium Chloride 0.9% [Normal Saline] 50 ml IV Q24H 02/22/18 14:37 Transfuse Red Blood Cells [COMM] Routine 02/22/18 14:38 Up With Assistance [RC] ASDIRECTED 02/22/18 Lunch Mechanical Soft Diet [DIET] 02/23/18 05:00 BASIC METABOLIC PANEL,BMP [CHEM] Timed CBC W/O DIFF,HEMOGRAM [HEME] Timed (1) 02/23/18 07:00 PT Evaluation and Treatment [CONS] Routine - Plan Plan:: ASSESSMENT AND PLAN - Esophageal mass - concerning for cancer, biopsies have been taken and pathology will be pending for several days. This would explain her weight loss and difficulty eating. This would also likely explain some of her anemia. will be talking with patient and family about plan of care when pathology returns. She is a very poor surgical candidate at this time if surgery is considered as an option. -Viscous lidocaine with meals to help reduce discomfort Acute cystitis - call urinary tract infection could explain increase in weakness and recent falls. Urine culture is growing a gram-positive cocci but identification is pending. -Ceftriaxone -Follow-up urine culture -Physical therapy for strengthening when available on Friday Iron deficiency anemia, likely secondary to chronic blood loss - No report of melena or hematochezia. She did have a guaiac positive stool. likely related to esophageal mass as discussed above. -Transfuse 1 unit of blood today -Consider Iron infusion tomorrow -PPI -Soft diet Oxygen-dependent COPD - Poor functional status, only able to walk about 10-15 feet at this time. No evidence for pulmonary infection. -Scheduled and as needed nebulizers Mild cognitive deficits - A early dementia, could be vascular versus Alzheimer' s. I don't believe she is able to make her own decisions at this time. Maintenance issues - - DVT prophylaxis - mechanical with high risk of bleeding - GI prophylaxis - PPI - Nutrition - mechanical soft diet - Gatica catheter - not indicated CODE STATUS - DNR/DNI Admission justification - This patient will be admitted for inpatient services and is medically appropriate meeting medical necessity for inpatient admission as outlined in my documentation. I reasonably expect the patient will require inpatient services that span a period time over 2 midnights. I reasonably expect this patient to be discharged or transferred within 96 hours [facility]. Disposition - I would anticipate discharge to the [facility] after the hospital stay ( Norm is not able to take care of her at home any longer) Primary care physician - JACKELYN Zee M.D.
[2018-02-22] MEDS: Lidocaine 2% Viscous Solution 15 ML Cup PO SCH (17:21)
[2018-02-22] MEDS: Melatonin 3 MG Tab PO SCH (21:40)
[2018-02-23] MEDS: Albuterol/Ipratropium 3.0-0.5 MG/3 ML Neb Soln INH SCH ×4 (07:22→20:34)
--- NOTE | 2018-02-23 10:40 | OR ---
DATE OF PROCEDURE: 02/22/2018 PROCEDURE: Esophagogastroduodenoscopy. FINDINGS: Mass-like lesion at the GE junction. COMPLICATIONS: None. SENIOR ELECTRICAL ENGINEER: None. PREOPERATIVE DIAGNOSES: Anemia and unintentional weight loss. POSTOPERATIVE DIAGNOSES: Anemia and unintentional weight loss. RISKS: Risks, benefits, alternatives, and limitations including, but not limited to infection, bleeding, and perforation were explained to the patient, who wished to proceed. PROCEDURE IN DETAIL: The patient was placed in left lateral decubitus position. The EGD scope was introduced and advanced atraumatically into the second part of the duodenum. No abnormalities in the duodenum. No abnormalities on retroflex. At the GE junction, there was a circumferential mass-like lesion, which was biopsied in all 4 quadrants times approximately 8. There was no active bleeding from this. No other abnormalities noted in esophagus, except for retained liquid, which was mild. The patient tolerated the procedure well. Jose Antonio Feldman MD /[id number]
[2018-02-23] MEDS: Lidocaine 2% Viscous Solution 15 ML Cup PO SCH ×3 (11:17→17:26)
[2018-02-23] MEDS: Aspirin 81 MG Tab.EC PO SCH (11:18)
[2018-02-23] MEDS: amLODIPine 5 MG Tab PO SCH (11:18)
[2018-02-23] MEDS: Pantoprazole 40 MG Tab.CR PO SCH ×2 (11:18→17:25)
[2018-02-23] MEDS: Sertraline 50 MG, Sertraline 25 MG PO SCH ×2 (11:18)
[2018-02-23] MEDS: Polyethylene Glycol 3350 Powder 17 GM Packet PO SCH (11:26)
[2018-02-23] MEDS: oxyCODONE 5 MG Tab PO SCH ×2 (11:38→20:33)
--- NOTE | 2018-02-23 13:16 | CR ---
Lumbar spine. The lumbar vertebrae demonstrate normal alignment. There are no compression deformities. There is degenerative facet arthropathy at L3/4-L5/S1. There is an aorto iliac stent graft in place. Impression: 1. No acute findings of the lumbar spine.
--- NOTE | 2018-02-23 13:17 | CR ---
T-spine Comparison made with a lateral chest x-ray from 24 December 2017. There is a kyphotic curvature of the thoracic spine. There are multiple compression fractures of the upper and mid Lasix spine. These are demonstrated on the prior study and without significant change. No acute findings are demonstrated. Impression: 1. Chronic multiple thoracic compression fractures.
--- NOTE | 2018-02-23 14:17 | CR ---
Portable chest Comparison: 24 December 2017. There is interval decrease in size of a left pleural effusion. There continues to be density in the right lung base. The finding may reflect residual infiltrate and/or scarring. There is scarring in the upper lung pak bilaterally. Impression: 1. Improved but probable residual infiltrate right lung base. 2. Interval decrease of bilateral pleural effusions.
[2018-02-23] MEDS ORDERED: LORazepam 0.5 MG Tab PO PRN (14:19)
[2018-02-23] MEDS ORDERED: Morphine 10 MG/0.5 ML Oral Syringe PO PRN (14:19)
--- NOTE | 2018-02-23 14:25 | PCM.PN ---
- General Info Date of Service: 02/23/18 Subjective Update: Ms. Garcia has been stable since yesterday, remains very weak and short of breath. She is very confused this morning and unable to have a meaningful discussion concerning symptoms or review of systems. I did speak with her who feels it would be appropriate and consistent with her previously expressed wishes that she be moved to comfort cares only. Functional Status: Reports: Pain Controlled, Urinating - Review of Systems General: Reports: Weakness. Denies: Fever, Chills Pulmonary: Reports: Shortness of Breath. Denies: Pleuritic Chest Pain, Cough, Sputum, Hemoptysis Cardiovascular: Reports: Dyspnea on Exertion. Denies: Chest Pain, Palpitations , Orthopnea, PND Gastrointestinal: Reports: No Symptoms - Patient Data Vitals - Most Recent: Last Vital Signs Temp 98.0 F 02/23/18 11:00 Pulse 93 02/23/18 11:00 Resp 18 02/23/18 11:00 BP 135/108 H 02/23/18 11:18 Pulse Ox 93 L 02/23/18 11:00 Weight - Most Recent: 111 lb 15.988 oz I&O - Last 24 Hours: Intake & Output 02/22/18 02/23/18 02/23/18 22:59 06:59 14:59 Intake Total 390 350 Balance 390 350 Lab Results Last 24 Hours: Laboratory Results - last 24 hr 02/21/18 02/23/18 02/23/18 Range/Units 11:58 05:30 05:30 WBC 10.5 (4.5-11.0) K/uL RBC 3.33 (3.30-5.50) M/uL Hgb 8.4 L (12.0-15.0) g/dL Hct 28.7 L (36.0-48.0) % MCV 86 (80-98) fL MCH 25 L (27-31) pg MCHC 29 L (32-36) % Plt Count 278 (150-400) K/uL Sodium 143 (140-148) mmol/L Potassium 3.7 (3.6-5.2) mmol/L Chloride 110 H (100-108) mmol/L Carbon Dioxide 24 (21-32) mmol/L Anion Gap 12.7 (5.0-14.0) mmol/L BUN 18 (7-18) mg/dL Creatinine 0.7 (0.6-1.0) mg/dL Est Cr Clr Drug Dosing 53.12 mL/min Estimated GFR (MDRD) > 60 (>60) Glucose 120 H (74-106) mg/dL Calcium 8.6 (8.5-10.1) mg/dL Blood Type A POSITIVE Gel Antibody Screen Positive A* Crossmatch See Detail Darrell Results Last 24 Hours: Microbiology 02/21/18 12:20 Urine Culture - Final Urine, Bladder Enterococcus Faecalis Med Orders - Current: Current Medications Acetaminophen (Tylenol) 650 mg PO Q4H PRN PRN Reason: Pain (Mild 1-3)/fever Albuterol (Proventil Neb Soln) 2.5 mg NEB Q4H PRN PRN Reason: Shortness Of Breath/wheezing Albuterol/Ipratropium (Duoneb 3.0-0.5 Mg/3 Ml) 3 ml INH QIDRT [facility] Last Admin: 02/23/18 10:50 Dose: 3 ml Amlodipine Besylate (Norvasc) 2.5 mg PO DAILY [facility] Last Admin: 02/23/18 11:18 Dose: 2.5 mg Aspirin (Halfprin) 81 mg PO DAILY [facility] Last Admin: 02/23/18 11:18 Dose: 81 mg Ceftriaxone Sodium 1 gm/ (Sodium Chloride) 50 mls @ 100 mls/hr IV Q24H [facility] Last Admin: 02/22/18 13:12 Dose: 100 mls/hr Lidocaine HCl (Xylocaine 2% Viscous) 15 ml PO TIDAC [facility] Last Admin: 02/23/18 11:17 Dose: 15 ml Magnesium Hydroxide (Milk Of Magnesia) 30 ml PO Q12H PRN PRN Reason: Constipation Melatonin (Melatonin) 6 mg PO BEDTIME [facility] Last Admin: 02/22/18 21:40 Dose: 6 mg Ondansetron HCl (Zofran Odt) 4 mg PO Q6H PRN PRN Reason: Nausea able to take PO Ondansetron HCl (Zofran) 4 mg IV Q6H PRN PRN Reason: Nausea/Vomiting Oxycodone HCl (Oxycodone) 2.5 mg PO BID [facility] Last Admin: 02/23/18 11:38 Dose: 2.5 mg Pantoprazole Sodium (Protonix) 40 mg PO BIDAC [facility] Last Admin: 02/23/18 11:18 Dose: 40 mg Polyethylene Glycol (Miralax) 17 gm PO DAILY [facility] Last Admin: 02/23/18 11:26 Dose: 17 gm Sertraline HCl 50 mg/ (Sertraline HCl 25 mg) 75 mg PO DAILY [facility] Last Admin: 02/23/18 11:18 Dose: 75 mg Discontinued Medications Sodium Chloride (Normal Saline) 1,000 mls @ 400 mls/hr IV ASDIRECTED [facility] Last Admin: 02/21/18 12:53 Dose: 400 mls/hr Ceftriaxone Sodium 1 gm/ (Sodium Chloride) 50 mls @ 100 mls/hr IV ONETIME ONE Stop: 02/21/18 12:47 Last Admin: 02/21/18 12:55 Dose: 100 mls/hr Sodium Chloride (Normal Saline) 1,000 mls @ 100 mls/hr IV ASDIRECTED [facility] Last Admin: 02/22/18 02:02 Dose: 100 mls/hr Potassium Chloride (Klor-Con M20) 40 meq PO ONETIME ONE Stop: 02/22/18 09:16 Last Admin: 02/22/18 11:41 Dose: Not Given Potassium Chloride (Potassium Chloride Solution) 40 meq PO ONETIME ONE Stop: 02/22/18 11:31 Last Admin: 02/22/18 11:33 Dose: 40 meq Propofol (Diprivan 20 Ml) Confirm Administered Dose 200 mg .ROUTE .STK-MED ONE Stop: 02/22/18 09:31 - Exam Quality Assessment: Supplemental Oxygen, DVT Prophylaxis General: Alert, Cooperative, Mild Distress Lungs: Clear to Auscultation, Normal Respiratory Effort Cardiovascular: Regular Rate, Regular Rhythm, No Murmurs GI/Abdominal Exam: Soft, Non-Tender, No Organomegaly, No Distention Extremities: Non-Tender, Pedal Edema - Problem List Review Problem List Initiated/Reviewed/Updated: Yes - My Orders Last 24 Hours: My Active Orders 02/23/18 14:19 LORazepam [Ativan] 0.5 mg PO Q4H PRN Morphine [Morphine 10 MG/0.5 ML Oral Syringe] 5 mg PO Q2H PRN - Plan Plan:: ASSESSMENT AND PLAN - Esophageal mass - concerning for cancer, biopsies have been taken and pathology will be pending tomorrow. This would explain her weight loss and difficulty eating. This would also likely explain some of her anemia. -After discussion with today he would like to proceed with comfort cares only -Viscous lidocaine with meals to help reduce discomfort Acute cystitis - urinary tract infection could explain increase in weakness and recent falls. Urine culture is growing Aerococcus, pansensitive. Because of history of penicillin allergy we'll plan to transition to oral ciprofloxacin. -Cipro 500 mg by mouth twice a day -Physical therapy for strengthening when available on Friday Iron deficiency anemia, likely secondary to chronic blood loss - No report of melena or hematochezia. She did have a guaiac positive stool. likely related to esophageal mass as discussed above. -PPI -Soft diet Oxygen-dependent COPD - Poor functional status, only able to walk about 10-15 feet at this time. No evidence for pulmonary infection. -Scheduled and as needed nebulizers Moderate cognitive deficits - Dementia, could be vascular versus Alzheimer's. I don't believe she is able to make her own decisions at this time. Maintenance issues - - DVT prophylaxis - mechanical with high risk of bleeding - GI prophylaxis - PPI - Nutrition - mechanical soft diet - Gatica catheter - not indicated CODE STATUS - DNR/DNI Admission justification - This patient will be admitted for inpatient services and is medically appropriate meeting medical necessity for inpatient admission as outlined in my documentation. I reasonably expect the patient will require inpatient services that span a period time over 2 midnights. I reasonably expect this patient to be discharged or transferred within 96 hours [facility]. Disposition - I would anticipate discharge to the [facility] after the hospital stay ( Norm is not able to take care of her at home any longer) Primary care physician - [place]
[2018-02-23] MEDS: cefTRIAXone 1 GM in Sodium Chloride 0.9% 50 ML IV SCH (15:33)
[2018-02-23] MEDS: Ciprofloxacin 500 MG Tab PO SCH (20:32)
[2018-02-23] MEDS: Melatonin 3 MG Tab PO SCH (20:33)
[2018-02-24] MEDS: Albuterol/Ipratropium 3.0-0.5 MG/3 ML Neb Soln INH SCH ×2 (07:08→11:06)
[2018-02-24 07:53] VITALS: BP 136/84
[2018-02-24] MEDS: Lidocaine 2% Viscous Solution 15 ML Cup PO SCH ×2 (08:20→11:03)
[2018-02-24] MEDS: Ciprofloxacin 500 MG Tab PO SCH (08:21)
[2018-02-24] MEDS: amLODIPine 5 MG Tab PO SCH (08:21)
[2018-02-24] MEDS: Sertraline 50 MG, Sertraline 25 MG PO SCH ×2 (08:21)
[2018-02-24] MEDS: Aspirin 81 MG Tab.EC PO SCH (08:21)
[2018-02-24] MEDS: Pantoprazole 40 MG Tab.CR PO SCH (08:21)
[2018-02-24] MEDS: Polyethylene Glycol 3350 Powder 17 GM Packet PO SCH (08:21)
[2018-02-24] MEDS: oxyCODONE 5 MG Tab PO SCH (08:22)
--- NOTE | 2018-02-24 13:38 | PCM.DCSUM1 ---
Discharge Summary - Hospital Course Brief History: Ms. Garcia is a 77-year-old woman who was admitted through the emergency department with progressive weakness, weight loss, and new anemia. - Discharge Data Discharge Date: 02/24/18 Discharge Disposition: DC/Tfer to [facility] Condition: Poor - Discharge Diagnosis/Problem(s) (1) Esophageal carcinoma SNOMED Code(s): 872187659 ICD Code: C15.9 - MALIGNANT NEOPLASM OF ESOPHAGUS, UNSPECIFIED Status: Acute Current Visit: Yes (2) COPD (chronic obstructive pulmonary disease) SNOMED Code(s): 44331413 ICD Code: J44.9 - CHRONIC OBSTRUCTIVE PULMONARY DISEASE, UNSPECIFIED Status : Acute Current Visit: Yes (3) Iron deficiency anemia due to chronic blood loss SNOMED Code(s): 933095715 ICD Code: D50.0 - IRON DEFICIENCY ANEMIA SECONDARY TO BLOOD LOSS (CHRONIC) Status: Acute Current Visit: Yes (4) CKD (chronic kidney disease), stage III SNOMED Code(s): 412797572 ICD Code: N18.3 - CHRONIC KIDNEY DISEASE, STAGE 3 (MODERATE) Status: Chronic Current Visit: No (5) CAD (coronary artery disease) SNOMED Code(s): 97369176 ICD Code: I25.10 - ATHSCL HEART DISEASE OF [place] CORONARY ARTERY W/O ANG PCTRS Status: Chronic Current Visit: No Qualifiers: Coronary Disease-Associated Artery/Lesion type: [place] artery [place] vs. transplanted heart: [place] heart Associated angina: without angina Qualified Code(s): I25.10 - Atherosclerotic heart disease of [place] coronary artery without angina pectoris (6) Mild cognitive impairment with memory loss SNOMED Code(s): 512033750, 200115311 ICD Code: G31.84 - MILD COGNITIVE IMPAIRMENT, SO STATED Status: Chronic Current Visit: No - Patient Summary/Data Consults: Consultations 02/21/18 14:35 Consult to Physician [CONS] Routine Consulting Provider: Jose Antonio Feldman Call Completed to Consulting Physician: Yes Reason for Consult: odynophagia and anemia, consider EGD Person Notified: RW Date Notified: 02/21/18 Special Instructions: EGD in am 02/23/18 07:00 PT Evaluation and Treatment [CONS] Routine Please Evaluate and Treat. PT Reason for Consult: Strengthening This query below is only for informational purposes and is not editable. Hospital Course: Sheree presents to the emergency room with her with a chief complaint of weakness and had a fall this morning. The patient has mild cognitive deficits so much of the history is gathered from her Norm. She had been in the residential for about a month and has been home for just over a month. She has had a slow decline in her strength since that time. Even walking about 20 feet from the bed to the recliner is increasingly difficult. This morning her found her laying on the floor between the bed and the recliner after she had apparently got up at some point to go to the chair. She is not currently complaining of any aches or pains. No complaints of shoulder, elbow or chest pain. No complaints of abdominal pain. Her reports that she has not had much of an appetite and has lost more than 50 pounds in the past 6- 12 months. Patient reports odynophagia when trying to eat food. Liquids typically go down okay. No sensation of the food getting stuck. She has mild intermittent nausea. She reports difficulty with hard bowel movements but has not been using her stool softeners or miralax. She has not had any blood in her stool and has not had black tarry stools. She does not have any change in urinary symptoms but has chronic dysuria, frequency and incontinence. She is not sure if she's had any fevers recently but does occasionally feel warm. She does not feel any more short of breath than baseline. She uses oxygen 24 hours a day. Her is feeling overwhelmed with her current level of weakness and does not think he can safely care for her at home any longer. Workup in the emergency room revealed evidence for anemia with a hemoglobin of 7.9 and a very low iron level. She has a mild leukocytosis and evidence for urinary tract infection. She is extremely weak and not safe for outpatient management. She will be admitted for further workup of the anemia as well as strengthening, urinary tract infection treatment and possibly residential placement. On admission she was given IV fluids for hydration and started on antibiotic therapy for urinary tract infection. Urine culture was obtained and later grow out enterococcus which was sensitive to medications, she completed a course of antibiotic therapy prior to discharge. She was seen on the morning after admission by Dr. Feldman for surgical consultation, EGD was performed which showed a large mass at the esophageal gastric junction which was felt to represent probable esophageal carcinoma. The lesion had narrowed the lumen of this esophagus significantly, explaining her difficulty with swallowing and eating. This was also felt to be the likely source of recent bleeding. Biopsies were obtained at the time of EGD and are pending at the time of discharge. Discussion was held with patient and family concerning the findings of EGD and likelihood of esophageal carcinoma. It was explained to them that she was not a good candidate for considering surgical intervention or even chemotherapy because of her multiple associated medical problems and profound weakness. They decided to pursue comfort cares only and she will be discharged to residential with medication as needed for comfort. After she no longer qualifies for halfway care the plan will be for transition to hospice admission and care. - Patient Instructions Diet: Pureed Activity: As Tolerated Other/Special Instructions: DNR/DNI, comfort cares only. Hospice admission after she no longer qualifies for halfway stay. - Discharge Plan *PRESCRIPTION DRUG MONITORING PROGRAM REVIEWED*: Not Applicable *COPY OF PRESCRIPTION DRUG MONITORING REPORT IN PATIENT SERA: Not Applicable Prescriptions/Med Rec: LORazepam [LORazepam Intensol] 0.5 mg PO Q2H PRN #15 ml PRN Reason: Anxiety Morphine [Morphine 10 MG/0.5 ML Oral Syringe] 5 mg PO Q1H PRN #15 ml PRN Reason: Dyspnea Home Medications: Home Meds Acetaminophen 500 mg PO Q6H PRN 11/26/17 [History] Albuterol [Proventil HFA] 1 - 2 puff INH Q4H PRN 11/26/17 [History] Aspirin [Adult Low Dose Aspirin EC] 81 mg PO DAILY 11/26/17 [History] Meclizine [Antivert] 1 tab PO TID PRN 11/26/17 [History] Melatonin 3 mg PO BEDTIME 11/26/17 [History] Polyethylene Glycol 3350 [MiraLAX] 17 gm PO DAILY 11/26/17 [History] Sertraline [Zoloft] 75 mg PO ASDIRECTED 11/26/17 [History] amLODIPine [Norvasc] 2.5 mg PO DAILY 11/26/17 [History] Albuterol/Ipratropium [DuoNeb 3.0-0.5 MG/3 ML] 3 ml INH Q4H PRN 02/21/18 [ History] Ferrous Sulfate 325 mg PO DAILY 02/21/18 [History] Furosemide [Lasix] 20 mg PO DAILY 02/21/18 [History] L.acidoph,Paracasei, B.lactis [Probiotic] 1 each PO DAILY 02/21/18 [History] LORazepam [LORazepam Intensol] 0.5 mg PO Q2H PRN #15 ml 02/24/18 [Rx] Morphine [Morphine 10 MG/0.5 ML Oral Syringe] 5 mg PO Q1H PRN #15 ml 02/24/18 [ Rx] - Discharge Summary/Plan Comment DC Time >30 min.: No - Patient Data Vitals - Most Recent: Last Vital Signs Temp 96.5 F 02/24/18 07:38 Pulse 89 02/24/18 11:06 Resp 18 02/24/18 07:38 BP 136/84 02/24/18 08:21 Pulse Ox 97 02/24/18 11:06 Weight - Most Recent: 111 lb 15.988 oz I&O - Last 24 hours: Intake & Output 02/23/18 02/24/18 02/24/18 22:59 06:59 14:59 Intake Total 240 Balance 240 Lab Results - Last 24 hrs: Laboratory Results - last 24 hr 02/21/18 Range/Units 11:58 Antibody Identification Anti-M Med Orders - Current: Current Medications Acetaminophen (Tylenol) 650 mg PO Q4H PRN PRN Reason: Pain (Mild 1-3)/fever Albuterol (Proventil Neb Soln) 2.5 mg NEB Q4H PRN PRN Reason: Shortness Of Breath/wheezing Albuterol/Ipratropium (Duoneb 3.0-0.5 Mg/3 Ml) 3 ml INH QIDRT [facility] Last Admin: 02/24/18 11:06 Dose: 3 ml Amlodipine Besylate (Norvasc) 2.5 mg PO DAILY [facility] Last Admin: 02/24/18 08:21 Dose: 2.5 mg Aspirin (Halfprin) 81 mg PO DAILY [facility] Last Admin: 02/24/18 08:21 Dose: 81 mg Ciprofloxacin (Ciprofloxacin Hcl) 500 mg PO BID [facility] Last Admin: 02/24/18 08:21 Dose: 500 mg Lidocaine HCl (Xylocaine 2% Viscous) 15 ml PO TIDAC [facility] Last Admin: 02/24/18 11:03 Dose: 15 ml Lorazepam (Ativan) 0.5 mg PO Q4H PRN PRN Reason: Anxiety Magnesium Hydroxide (Milk Of Magnesia) 30 ml PO Q12H PRN PRN Reason: Constipation Melatonin (Melatonin) 6 mg PO BEDTIME [facility] Last Admin: 02/23/18 20:33 Dose: 6 mg Morphine Sulfate (Morphine 10 Mg/0.5 Ml Oral Syringe) 5 mg PO Q2H PRN PRN Reason: Dyspnea Ondansetron HCl (Zofran Odt) 4 mg PO Q6H PRN PRN Reason: Nausea able to take PO Ondansetron HCl (Zofran) 4 mg IV Q6H PRN PRN Reason: Nausea/Vomiting Oxycodone HCl (Oxycodone) 2.5 mg PO BID [facility] Last Admin: 02/24/18 08:22 Dose: 2.5 mg [facility]oprazole S[facility] ([facility]ix) [facility] Last Admin: 02/24/18 08:21 Dose: 40 mg Polyethylene Glycol (Miralax) 17 gm PO DAILY [facility] Last Admin: 02/24/18 08:21 Dose: 17 gm Sertraline HCl 50 mg/ (Sertraline HCl 25 mg) 75 mg PO DAILY [facility] Last Admin: 02/24/18 08:21 Dose: 75 mg Discontinued Medications Sodium Chloride (Normal Saline) 1,000 mls @ 400 mls[facility] Last Admin: 02/21/18 12:53 Dose: 400 mls/hr Ceftriaxone Sodium 1 gm/ (Sodium Chloride) 50 mls @ 100 mls/hr IV ONETIME ONE Stop: 02/21/18 12:47 Last Admin: 02/21/18 12:55 Dose: 100 mls/hr Sodium Chloride (Normal Saline) 1,000 mls [facility] 100 [facility] Last Admin: 02/22/18 02:02 Dose: 100 mls/hr Ceftriaxone Sodium 1 gm/ (Sodium Chloride) 50 mls @ 100 mls/hr IV Q24H [facility] Last Admin: 02/23/18 15:33 Dose: Not Given Potassium Chloride (Klor-Con M20) 40 meq PO ONETIME ONE Stop: 02/22/18 09:16 Last Admin: 02/22/18 11:41 Dose: Not Given Potassium Chloride (Potassium Chloride Solution) 40 meq PO ONETIME ONE Stop: 02/22/18 11:31 Last Admin: 02/22/18 11:33 Dose: 40 meq Propofol (Diprivan 20 Ml) Confirm Administered Dose 200 mg .ROUTE .STK-MED ONE Stop: 02/22/18 09:31 - Exam Quality Assessment: Reports: Supplemental Oxygen General: Reports: Alert, Cooperative, No Acute Distress Lungs: Reports: Decreased Breath Sounds, Wheezing. Denies: Rales, Rhonchi Cardiovascular: Reports: Regular Rate, Regular Rhythm, No Murmurs GI/Abdominal Exam: Soft, Non-Tender, No Organomegaly, No Distention *Q Meaningful Use (DIS) - VTE *Q VTE Pharmacological Contraindications *Q: Active Hemorrhage
== END 2018-02-24 14:20 | disposition hospice, inpatient (51) | DRG 690 ==
LOC: JP.ED 10:49 → JP.MS 14:25
PROVIDERS: ADMIT Internal Medicine; ATTEND Hospitalist
PROC: 30233N1 Transfusion of Nonautologous Red Blood Cells into Peripheral Vein, Percutaneous Approach (ICD-10-PCS; principal; 2018-02-22)
PROC: 0DB48ZX Excision of Esophagogastric Junction, Via Natural or Artificial Opening Endoscopic, Diagnostic (ICD-10-PCS; 2018-02-22)
DX: N30.00 Acute cystitis without hematuria (principal); C15.9 Malignant neoplasm of esophagus, unspecified; Z68.1 Body mass index [BMI] 19.9 or less, adult; B95.2 Enterococcus as the cause of diseases classified elsewhere; Z51.5 Encounter for palliative care; Z66 Do not resuscitate; D50.0 Iron deficiency anemia secondary to blood loss (chronic); I12.9 Hypertensive chronic kidney disease with stage 1 through stage 4 chronic kidney disease, or unspecified chronic kidney disease; N18.3 Chronic kidney disease, stage 3 (moderate); M54.5 Low back pain; G89.29 Other chronic pain; Z87.891 Personal history of nicotine dependence; R53.1 Weakness; W19.XXXA Unspecified fall, initial encounter; Y92.009 Unspecified place in unspecified non-institutional (private) residence as the place of occurrence of the external cause; Z99.81 Dependence on supplemental oxygen; Z86.73 Personal history of transient ischemic attack (TIA), and cerebral infarction without residual deficits; Z91.81 History of falling; G31.84 Mild cognitive impairment of uncertain or unknown etiology; J44.9 Chronic obstructive pulmonary disease, unspecified; I25.10 Atherosclerotic heart disease of native coronary artery without angina pectoris; R63.4 Abnormal weight loss; I25.2 Old myocardial infarction; K59.09 Other constipation; R32 Unspecified urinary incontinence; H54.7 Unspecified visual loss; E78.00 Pure hypercholesterolemia, unspecified; R29.6 Repeated falls; Z87.311 Personal history of (healed) other pathological fracture
CPT/HCPCS: 36415; 71045 ×2; 72074 ×2; 72110 ×2; 80053; 81001; 82272; 83550; 84443; 85025; 86850; 86900 ×2; 86901 ×2; 86902 ×2; 86920; 86922; 87086; 87088; 87186; 96361; 96365; 99285; J0696; J7030; J7050; 36430; 80048; 82728; 85027; 94640; A9270-GY; J2704; J7620-GY; P9016